=== PATIENT | female | born 1935 | race Caucasian/White ===

== ENCOUNTER → 2016-12-24 | Outpatient (CLI) | payer OTHER ==
[~2016-12-24] MED LIST: ALLERGY10 M1 PO; CALCIUM + VITAM1 TAB PO; LOPID600 MG PO; PANTOPRAZOLE SO40 MG PO; PAXIL PO; PRILOSEC PO; PRILOSEC20 M1 PO
== END | disposition home or self-care (01) ==
LOC: CSSDAY 11:14
DX: M81.0 Age-related osteoporosis without current pathological fracture (principal); Z79.899 Other long term (current) drug therapy
CPT/HCPCS: 82310; 96372; J0897